=== PATIENT | female | born 1975 | race Caucasian/White ===

== ENCOUNTER 2017-04-13 13:43 | Emergency (ER) | payer BC ==
[2017-04-13] MEDS: CYCLOBENZAPRINE 10 MG TABLET. PO (14:15)
[2017-04-13] MEDS: KETOROLAC 60 MG/2 ML INJ. IM (14:16)
== END 2017-04-13 14:30 | disposition home or self-care (01) ==
LOC: ER 13:43
DX: R07.82 Intercostal pain (principal); J44.9 Chronic obstructive pulmonary disease, unspecified; [UNRECOGNIZED DIAGNOSIS CODE]
CPT/HCPCS: 96372; 99283; J1885

== ENCOUNTER 2018-09-06 19:38 | Emergency (ER) | payer BC ==
[~2018-09-06] VITALS: Ht 162.6 cm; Wt 59.0 kg
[~2018-09-06 19:38] MED LIST: CYCL10TA2 PO; HYDR-3164 PO; IBUP-1007 PO; NAPR-682 PO; NAPR250T6 PO
[2018-09-06 19:45] VITALS: BP 125/69
[2018-09-06] MEDS ORDERED: LIDOCAINE 1% Multi-Dose 20 ML VIAL. INJ ONE (20:30)
[2018-09-06] MEDS ORDERED: LIDOCAINE 1%/EPI 1:100,000 20 ML VIAL. ONE (20:39)
[2018-09-06] MEDS ORDERED: DIPHTH,PERTUSS(ACELL),TET TOX 0.5 ML DISP.SYRIN. VAX IM ONE ×2 (21:34→22:00)
[2018-09-06] MEDS ORDERED: CEPH-264 PO (21:35)
[2018-09-06] MEDS ORDERED: CEPHALEXIN 250 MG CAPSULE. PO STA (21:35)
--- NOTE | 2018-09-06 21:35 | PHYS DOC ---
Past Medical History Past Medical History: COPD (NADJA KELLEY APRN) Past Surgical History: Tubal ligation (NADJA KELLEY APRN) Alcohol Use: Occasionally Drug Use: None (NADJA KELLEY APRN) Adult General Chief Complaint Chief Complaint: ABSCESS HPI HPI Patient is a 43 year old female who presents with abscess in left groin. Has been ongoing for week. The patient states it started as an ingrown hair and became infected and has been getting bigger and the pain has been getting worse. Rates her pain as 5 out of 10 when lying flat but when she tries to walk her pain shoots up to 8 out of 10. She popped it yesterday and yellow pus came out. It then has become painful again. Has been using warm compresses on it. (NADJA KELLEY APRN) Review of Systems Review of Systems Constitutional: Denies fever or chills [] Eyes: Denies change in visual acuity, redness, or eye pain [] HENT: Denies nasal congestion or sore throat [] Respiratory: Denies cough or shortness of breath [] Cardiovascular: No additional information not addressed in HPI [] GI: Denies abdominal pain, nausea, vomiting, bloody stools or diarrhea [] : Denies dysuria or hematuria [] Musculoskeletal: Denies back pain or joint pain [] Integument: Denies rash or skin lesions with exception of abscess to left inguinal. Neurologic: Denies headache, focal weakness or sensory changes [] Endocrine: Denies polyuria or polydipsia [] Complete systems were reviewed and found to be within normal limits, except as documented in this note. (NADJA KELLEY APRN) Current Medications Current Medications Current Medications Medications (Trade) Dose Ordered Sig/Abdulaziz Start Time Stop Time Status Last Admin Dose Admin Cephalexin HCl (Keflex) 500 mg 1X STAT 09/06/18 21:35 09/06/18 21:38 DC 09/06/18 21:42 500 MG Diphtheria/ Tetanus/Acell Pertussis (Boostrix) 0.5 ml ONCE ONCE 09/06/18 22:00 09/06/18 22:00 DC 09/06/18 21:51 0.5 ML Lidocaine HCl (Lidocaine 1% 20ml Vial) 20 ml 1X ONCE 09/06/18 20:30 09/06/18 20:50 DC 09/06/18 20:54 20 ML Lidocaine/ Epinephrine (LIDOCAINE 1%-EPI 1:100,000 Multi-Dose) 20 ml STK-MED ONCE 09/06/18 20:39 09/06/18 20:40 DC (NADJA STOCKTON DO) Allergies Allergies Allergies Coded Allergies Type Severity Reaction Last Updated Verified No Known Drug Allergies 07/02/13 No (NADJA STOCKTON DO) Physical Exam Physical Exam Constitutional: Well developed, well nourished, no acute distress, non-toxic appearance. [] HENT: Normocephalic, atraumatic, bilateral external ears normal, oropharynx moist, no oral exudates, nose normal. [] Eyes: PERRLA, EOMI, conjunctiva normal, no discharge. [] Neck: Normal range of motion, no tenderness, supple, no stridor. [] Cardiovascular:Heart rate regular rhythm, no murmur [] Lungs & Thorax: Bilateral breath sounds clear to auscultation [] Abdomen: Bowel sounds normal, soft, no tenderness, no masses, no pulsatile masses. [] Skin: Warm, dry, no erythema, no rash. Has 2 cm abscess to the left inguinal area. Back: No tenderness, no CVA tenderness. [] Extremities: No tenderness, no cyanosis, no clubbing, ROM intact, no edema. [] Neurologic: Alert and oriented X 3, normal motor function, normal sensory function, no focal deficits noted. [] Psychologic: Affect normal, judgement normal, mood normal. [] (NADJA KELLEY APRN) Current Patient Data Vital Signs Vital Signs Date Time Temp Pulse Resp B/P (MAP) Pulse Ox O2 Delivery O2 Flow Rate FiO2 09/06/18 19:45 98.1 75 17 125/69 (87) 100 Room Air 98.1 (NADJA STOCKTON DO) Lab Values Laboratory Tests Test 09/06/18 20:12 POC Urine HCG, Qualitative Hcg negative (Negative) (NADJA STOCKTON DO) EKG EKG [] (NADJA KELLEY APRN) Radiology/Procedures Radiology/Procedures Indication: abscess Procedure: The patient was positioned appropriately. Local anesthesia was 1% lidocaine. An incision was then made over the apex of the lesion and exudate and blood was expressed. The drainage cavity was irrigated and packed with sterile gauze. The patients tetanus status updated as needed. The patient tolerated the procedure well. Complications: none. (NADJA KELLEY APRN) Course & Med Decision Making Course & Med Decision Making Pertinent Labs and Imaging studies reviewed. (See chart for details) I/d performed and abscess drained. Tetanus shot updated. (NADJA KELLEY APRN) Dragon Disclaimer Dragon Disclaimer This electronic medical record was generated, in whole or in part, using a voice recognition dictation system. (NADJA KELLEY APRN) Departure Departure Impression: Primary Impression: Abscess Disposition: HOME, SELF-CARE Condition: STABLE Referrals: YUVAL SCOTT (PCP) Patient Instructions: Abscess, Abscess, Care After, Abscess, Perineal Additional Instructions: Thank you for visiting [facility]. We appreciate you trusting us with your care. If any additional problems come up don't hesitate to return to visit us. Please follow up with your primary care provider so they can plan additional care if needed and know about the problem that you had. If symptoms worsen come back to the Emergency Department. Any concerning symptoms that start such as chest pain, shortness of Air, weakness or numbness on one side of the body, running high fevers or any other concerning symptoms return to the ER. Please fill your medications at any pharmacy and follow the prescription instructions. You have been prescribed an antibiotic today to help fight your infection. Please take all of the antibiotic as directed. If after 48 hours the infection is not improving, please return for more care. If the infection worsens, return to ER for additional care. Scripts Cephalexin (KEFLEX) 500 Mg Capsule 1 CAP PO BID for 7 Days, #14 CAP Prov: NADJA KELLEY APRN 09/06/18 Attending Signature Attending Signature I have reviewed the PA/OPERATIONS ADMINISTRATOR's note and plan of care. I was available for consultation as needed during the patient's visit in the emergency department. I agree with the clinical impression, plan, and disposition. (NADJA STOCKTON DO) NADJA KELLEY APRN Sep 06, 2018 21:35 NADJA STOCKTON DO Sep 07, 2018 03:48
== END 2018-09-06 21:52 | disposition home or self-care (01) ==
LOC: ER 19:38
DX: L02.214 Cutaneous abscess of groin (principal); L73.1 Pseudofolliculitis barbae; J44.9 Chronic obstructive pulmonary disease, unspecified; Z98.51 Tubal ligation status
CPT/HCPCS: 10060; 81025; 90471; 90715; 99283

== ENCOUNTER → 2019-11-29 | Outpatient (CLI) | payer BC ==
[~2019-11-29] MED LIST changes: +CEPH-264 PO
[2019-11-29 13:07] LABS: BASO # 0.1 x10^3/uL (0.0-0.2); BASO % 1 % (0-3); EOS # 0.3 x10^3/uL (0.0-0.7); EOS % 4 % (0-3); HEMATOCRIT 42.5 % (36.0-47.0); HEMOGLOBIN 14.4 g/dL (12.0-15.5); LYMPH % 35 % (24-48); MEAN CORPUSCULAR HEMOGLOBIN 31 pg (25-35); MEAN CORPUSCULAR HGB CONC 34 g/dL (31-37); MEAN CORPUSCULAR VOLUME 91 fL (79-100); MONO # 0.5 x10^3/uL (0.0-1.1); MONO % 6 % (0-9); NEUT # 4.6 x10^3/uL (1.8-7.7); NEUT % 54 % (31-73); PLATELET COUNT 378 x10^3/uL (140-400); RED BLOOD COUNT 4.69 x10^6/uL (3.50-5.40); RED CELL DISTRIBUTION WIDTH 12.5 % (11.5-14.5); WHITE BLOOD COUNT 8.5 x10^3/uL (4.0-11.0)
[2019-11-29 13:08] LABS: BILIRUBIN,URINE NEGATIVE (NEG); CLARITY,URINE CLEAR; COLOR,URINE YELLOW; NITRITE,URINE NEGATIVE (NEG); PH,URINE 5.5 (<5.0-8.0); PROTEIN,URINE NEGATIVE (NEG-TRACE); UROBILINOGEN,URINE 0.2 mg/dL (0.2 mg/dL)
[2019-11-29 13:12] LABS: SQUAMOUS EPITHELIAL CELL,UR MOD /LPF
[2019-11-29 13:13] LABS: BACTERIA,URINE 0 /HPF (0-FEW)
--- NOTE | 2019-11-29 13:32 | EKG ---
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
[2019-11-29 13:45] LABS: ALBUMIN 4.2 g/dL (3.4-5.0); CALCIUM 8.6 mg/dL (8.5-10.1); CREATININE 0.8 mg/dL (0.6-1.0); GFR 78.3; POTASSIUM 4.2 mmol/L (3.5-5.1); TOTAL BILIRUBIN 0.5 mg/dL (0.2-1.0); TOTAL PROTEIN 8.3 g/dL (6.4-8.2)
--- NOTE | 2019-11-29 16:27 | RAD ---
CHEST PA LATERAL INDICATION: Reason: PRE OP HYSTERECTOMY ON 12/04/19 / Spl. Instructions: / History: . COMPARISON STUDY: Radiograph 02/21/2016, CT 01/28/2016. FINDINGS: Lungs: Normal lung volume. No pulmonary mass or consolidation. Stable right mid lung nodule. The tracheobronchial tree and hilar structures are normal. Pleura: No pleural effusion or pneumothorax. Heart and Mediastinum: The cardiomediastinal silhouette is normal. The great vessels of the thorax are normal. IMPRESSION: No acute cardiopulmonary process. Electronically signed by: Everett Billings MD (11/29/2019 4:24 PM) [id number]
--- NOTE | 2019-12-03 12:05 | NUR ---
Faxed pretesting results to Dr Dorman.
== END | disposition home or self-care (01) ==
LOC: SURGPAT 12:27
PROVIDERS: ATTEND Obstetrics & Gynecology
DX: Z01.812 Encounter for preprocedural laboratory examination (principal); Z20.828 Contact with and (suspected) exposure to other viral communicable diseases; I10 Essential (primary) hypertension; F17.200 Nicotine dependence, unspecified, uncomplicated
CPT/HCPCS: 71046; 80053; 81001; 85025; 93005; U0003

== ENCOUNTER 2019-12-04 06:21 | Observation (INO) | payer BC ==
[2019-12-04] VITALS (7 sets, daily range): BP systolic 98–115; BP diastolic 52–75
[~2019-12-04] VITALS: Ht 162.6 cm; Wt 58.0 kg
[~2019-12-04 06:21] MED LIST changes: +ceFAZolin SODIUM IV Push 1 GM VIAL. IVP PRN
[2019-12-04] MEDS ORDERED: fentaNYL PF VIAL 100 MCG/2 ML VIAL IV PRN ×2 (07:00)
[2019-12-04] MEDS ORDERED: LIDOCAINE 1% PF 2 ML VIAL. ID PRN (07:00)
[2019-12-04] MEDS ORDERED: ONDANSETRON PF 4 MG/2 ML VIAL. IV PRN ×2 (07:00→10:30)
[2019-12-04] MEDS ORDERED: IV RINGERS,LACTATED 1000ML 1,000 ML IV SCH (07:00)
[2019-12-04] MEDS ORDERED: HYDROmorphone 2 MG/ML VIAL IV PRN (07:00)
[2019-12-04] MEDS ORDERED: PROCHLORPERAZINE 10 MG/2 ML VIAL. IV PRN (07:00)
[2019-12-04] MEDS ORDERED: MORPHINE SULFATE 2 MG/ML VIAL. IV PRN ×2 (07:00→10:30)
[2019-12-04] MEDS ORDERED: INDIGOTINDISULFONATE SODIUM 40 MG/5 ML AMPUL. ONE (07:14)
[2019-12-04] MEDS ORDERED: BUPIVACAINE MPF 0.25% 30 ML VIAL. ONE (07:14)
[2019-12-04] MEDS ORDERED: ESTROGENS, CONJ VAGINAL CREAM 30GM TUBE. ONE (07:14)
[2019-12-04] MEDS ORDERED: BUPIVACAINE-EPI 0.5%-1:200000 MPF 30 ML VIAL. ONE (07:14)
[2019-12-04] MEDS ORDERED: fentaNYL PF VIAL 250 MCG/5 ML VIAL ONE (07:24)
[2019-12-04] MEDS ORDERED: MIDAZOLAM HCL/PF 2 MG/2 ML VIAL. ONE (07:24)
[2019-12-04] MEDS ORDERED: ROCURONIUM 50 MG/5 ML VIAL. ONE (07:24)
[2019-12-04] MEDS ORDERED: GLYCOPYRROLATE 1 MG/5 ML VIAL. ONE (09:55)
[2019-12-04] MEDS ORDERED: NEOSTIGMINE METHYLSULFATE 5 MG/5 ML SYRINGE. ONE (09:55)
[2019-12-04] MEDS ORDERED: PROCHLORPERAZINE 10 MG/2 ML VIAL. ONE (10:19)
[2019-12-04] MEDS ORDERED: fentaNYL PF VIAL 100 MCG/2 ML VIAL ONE (10:19)
--- NOTE | 2019-12-04 10:21 | PDOC ---
BRIEF OPERATIVE NOTE Date: Dec 04, 2019 Pre-Op Diagnosis dysmenorrhea, irregular menses Post-Op Diagnosis same Procedure Performed LAVH/RSO/left salpingectomy Surgeon Dr. Andreia Templeton Document Clerk Briseida OR nurse Anesthesiologist Dr. Ortez Anesthesia Type: General Blood Loss 100cc IV Fluid 2L Urine Output 125cc clear and concentrated Specimens Obtained cervix, uterus, right tube and ovary, left tube Findings mildly enlarged uterus, right paratubal cyst, no gross abnormalities Complications none Operative Note [id number] ANDREIA TEMPLETON MD Dec 04, 2019 10:21
[2019-12-04] MEDS ORDERED: LIDOCAINE 2% PF 5 ML VIAL. ONE (10:24)
[2019-12-04] MEDS ORDERED: PROPOFOL 10 MG/ML (20ML) VIAL. IV ONE (10:24)
[2019-12-04] MEDS ORDERED: SEVOFLURANE > 120 MINUTES. IH ONE (10:24)
[2019-12-04] MEDS ORDERED: diphenhydrAMINE 50 MG/ML VIAL IV PRN (10:30)
[2019-12-04] MEDS ORDERED: oxyCODONE/APAP 5/325 1 TAB TABLET PO PRN (10:30)
[2019-12-04] MEDS ORDERED: 0.9 % SODIUM CHLORIDE 10 ML DISP.SYRIN. IV PRN (10:30)
[2019-12-04] MEDS ORDERED: MAG HYDROX/ALUMINUM HYD/SIMETH 30 ML ORAL.SUSP PO PRN (10:30)
[2019-12-04] MEDS ORDERED: ZOLPIDEM 5 MG TABLET. PO PRN (10:30)
[2019-12-04] MEDS ORDERED: MAGNESIUM HYDROXIDE 2,400 MG/30 ML ORAL.SUSP. PO PRN (10:30)
[2019-12-04] MEDS ORDERED: CALCIUM CARBONATE 500 MG TAB.CHEW PO PRN (10:30)
[2019-12-04] MEDS ORDERED: LACTULOSE 20 GM/30 ML SOLUTION. PO PRN (10:30)
[2019-12-04] MEDS ORDERED: diphenhydrAMINE HCL 25 MG CAPSULE PO PRN (10:30)
[2019-12-04] MEDS ORDERED: SIMETHICONE 80 MG TAB.CHEW PO PRN (10:30)
[2019-12-04] MEDS ORDERED: NALOXONE 0.4 MG/ML VIAL. IV PRN (10:30)
--- NOTE | 2019-12-04 13:47 | OP ---
DATE OF SURGERY: 12/04/2019 PREOPERATIVE DIAGNOSES: Dysmenorrhea, irregular menses and chronic right-sided pelvic pain. POSTOPERATIVE DIAGNOSES: Dysmenorrhea, irregular menses and chronic right-sided pelvic pain. PROCEDURE: Laparoscopic-assisted vaginal hysterectomy, right salpingo-oophorectomy, left salpingectomy. SURGEON: Rafi Templeton MD FLAKING ROLL OPERATOR: WHITNEY Prado nurses. ANESTHESIOLOGIST: Artem Ortez MD ANESTHESIA: General. ESTIMATED BLOOD LOSS: 100 mL. URINE OUTPUT: 125 mL clear and concentrated via Plaza. IV FLUIDS: 2 liters of crystalloid. SPECIMEN REMOVED: Cervix, uterus, right tube and ovary and left tube. FINDINGS: Just a mildly enlarged uterus. The right paratubal cyst. No other gross abnormalities with the bowel. I could see the tip of the normal appendix, normal right upper quadrant. No gross abnormalities. COMPLICATIONS: None. DESCRIPTION OF PROCEDURE: This patient was taken to the operating room where general anesthesia was placed. The patient was placed in dorsal lithotomy [facility] The patient's abdomen and vagina were both prepped and draped in the normal sterile fashion and a Plaza catheter had been inserted under sterile technique. Upon my arrival, a timeout was performed. Once everyone agreed on the patient, the site, the procedure and she had received her antibiotics, the procedure was initiated. A bivalve speculum was placed in the patient's vagina. A single-tooth tenaculum was used to grasp the anterior lip of the cervix. A 10-12 mL of local was placed around the cervix for both hemodissection and hemostatic purposes later. The Valtchev uterine manipulator was placed through the endocervical os, locked on the single tooth tenaculum and the bivalve speculum was then removed. Top gloves were discarded and changed. Attention was then turned to the abdomen where a small infraumbilical skin incision was made over an existing scar. A curved Krystal was used to dissect through the subcuticular layer to the fascia. The 5 mm Visiport was used to directly into the abdominal cavity. Opening patient pressure was 2-3 mmHg. Carbon dioxide gas was used to insufflate the abdominal cavity to maintain a pressure of 15 mmHg. The patient was placed in Trendelenburg position. Left and right lower quadrant ports were placed, transilluminating the abdominal wall, finding an area clear of any vasculature and there was no adhesive disease on the inside, so once this was found a small incision was made and the 5 mm atraumatic ports were placed through under direct visualization, 4-5 mL of air was placed in each of these cuffs. Once they were placed, the scope was moved to the lateral port and looked at the umbilical port. Once it was clear and in a good spot, 4-5 mL of air was placed in this port as well. The gas was moved to the lateral port not to ____ and unfortunately they are still out of smoke ____. So, we decided to stop periodically throughout the case and allowed gas out to clear the smoke when we were using the LigaSure. At this point, the procedure was initiated. The left ovary looked good. She wished to retain this. She has absolutely no pain on the left side and is young for hormones, so I went above the ovary, below the tube and did a salpingectomy, cauterizing and cutting, then cross the left uteroovarian pedicle and the left round ligament, cauterizing and cutting the whole way through. The right side is where all of her pain was there was a right paratubal cyst, elevating the right tube and ovary, finding the ureter coursing low in the pelvis below where we were, it was clearly seen peristalsing and easily visualized staying hugging right under the ovary, staying high crossing the infundibulopelvic ligament on the right side, taking the right tube and ovary per patient request, taking it. Then, again crossing the right round ligament as well. The bladder flap was created sharply from the right side. The uterus was pushed cephalad and cut. The [place] was used to elevate the bladder flap and the monopolar hook was used to cauterize across and pull it down gently making the bladder flap sharply and bluntly. Once this was done, the uterine vessels were obtained on the right side and taking a few small bites inside of that pedicle going down hugging the cervix through the cardinal and broad ligaments. The left side, I just crossed over contralateral, hugged the cervix the whole way down and I was able, once the bladder was down, to get all the way down to the uterosacrals. The uterus was completely free and blanched, so all instruments were removed from the abdomen and attention was turned vaginally. The single tooth and Valtchev were removed. A weighted speculum was placed in the patient's vagina. Thyroid Ashley clamps were placed on the anterior and posterior lips of the cervix respectively. A scalpel was used to make a circumferential incision in the cervix and the posterior cul-de-sac was sharply entered with curved Mai scissors. A #0 Vicryl stitch was used to secure the posterior peritoneum here to the vaginal cuff and it was tagged with a curved Krystal clamp and the needle was cut and passed off. The short weighted speculum was removed and the long weighted Marifer speculum was placed in the posterior cul-de-sac. At this point, the anterior bladder peritoneum was taken out sharply using the end of the Organic Societyuer suction tip to gently push up and peel it off the cervix and then an open Ray-Lisa 4 x 4 was used to gently push it up once it was in a good plane and got in the anterior cul-de-sac bluntly. The curved Ronit was placed in the anterior cul-de-sac and the 4 x 4 had been removed and passed back to the back table. At this point, curved Ruddy clamps x 2 were placed on the patient's left uterosacral ligament where they were doubly clamped with curved Heaneys, cut with curved Mai scissors and suture ligated x 2 with 0 Vicryl. Second one was taken through the vaginal cuff securing uterosacral ligament to the vaginal cuff, tagged with a straight Krystal clamp and the needle was cut and passed off. This was done exactly the same on the right side, double clamping the uterosacrals with curved Ruddy's, cutting with curved Mai scissors, suture ligating x 2 with 0 Vicryl, taking the second one through the vaginal cuff securing uterosacral ligament to the vaginal cuff, tying it, tagging it with a straight Krystal clamp and cutting and passing the needle off. At this point, the right angle Mixter clamp was used to delineate the pedicle on the left. The vaginal LigaSure was used to cauterize and cut, freeing up the entire left side. This was done exactly the same on the right side. Once it was free, the cervix, uterus, right tube and ovary and left tube were delivered in total and passed off for permanent pathology. At this point, the anterior bladder peritoneum was grasped with a long Allis. A sponge stick was used to examine the pedicles. The left side was completely hemostatic. The right side had a tiny bit of bleeding just on the uterosacral. A burlisher was placed here and a 0 Vicryl stitch was used to secure the bleeding with excellent results. Once this was done and the sponge stick was used, I did remove the long weighted Marifer speculum and replaced with the short weighted vaginal speculum. Again I examined all the pedicles again making sure everything was hemostatic. Once it was, 2-0 Vicryl was taken through the anterior bladder peritoneum, left uterosacral ligament, posterior peritoneum and right uterosacral ligament, thus closing the peritoneum in a pursestring like fashion. Once this was done, the right and left uterosacral tags were clipped. A full length 2-0 Vicryl was obtained and the cuff was closed in an anterior to posterior running locked fashion and tied to that posterior cuff tag. Imbricating stitch was just placed in the middle for security. Once this was done, the cuff was completely hemostatic. All instruments were removed and correct x 2 by OR personnel the counts. All gloves were discarded and changed and attention was turned back above for a second look. Copious irrigation revealed hemostasis. The right and left pericolic gutters were clear. The right upper quadrant looked good. The tip of the normal appendix could be seen. It was just clear irrigation and return. Tisseel was placed over all the cuffs and there was a very small clot on the left ovary where there had been a little oozing that had stopped, but irrigation revealed hemostasis. Tisseel was placed over everything and there was absolutely no bleeding. After looking around every where again and finding the appendix. It remained hemostatic. All 3 of the trocars were deflated from that 4-5 mL of air. The left and right lower quadrant ports were removed under direct visualization. These too were hemostatic. Gas was released from the umbilical port. All three port sites were closed with 4-0 nylon at the skin and injected with local. The patient was then awakened from anesthesia and is being brought to recovery room in stable condition. RAFI TEMPLETON MD DR: PAULINE/severino JOB#: [id number] / [id number]
[2019-12-04] MEDS: HYDROcodone/APAP 5/325MG 1 TAB TABLET PO PRN ×2 (14:09→21:02)
[2019-12-05 01:15] VITALS: BP 113/69
[2019-12-05] MEDS: HYDROcodone/APAP 5/325MG 1 TAB TABLET PO PRN ×2 (02:03→09:54)
[2019-12-05 06:01] VITALS: BP 114/71
[2019-12-05 07:29] LABS: CALCIUM 8.9 mg/dL (8.5-10.1); CREATININE 0.6 mg/dL (0.6-1.0); GFR 109.1; POTASSIUM 4.3 mmol/L (3.5-5.1)
[2019-12-05 08:30] VITALS: BP 112/71
--- NOTE | 2019-12-05 08:46 | PDOC ---
SURGICAL PROGRESS NOTE DATE: 12/05/19 TIME: 08:42 Subjective Doing well. Up eating breakfast without n/v. Voiding without catheter. Main complaint was some trouble sleeping. Minimal pain, scant VB and ambulating well. Wants to go home Vital Signs Vital Signs Date Time Temp Pulse Resp B/P (MAP) Pulse Ox O2 Delivery O2 Flow Rate FiO2 12/05/19 06:01 98.8 67 114/71 (85) 98 98.8 12/05/19 02:03 18 Room Air 12/04/19 10:25 10.0 I&O Intake and Output 12/05/19 07:00 Intake Total 2000 ml Output Total 725 ml Balance 1275 ml Intake IV Total 2000 ml Output Urine Total 625 ml Estimated Blood Loss 100 ml # Voids 3 PATIENT HAS A VALENTINO: No General: Alert, Oriented X3, Cooperative, No acute distress HEENT: Atraumatic Heart: Regular rate Abdomen: Soft, No tenderness, Other (all port sites c/d/i) Extremities: No clubbing, No cyanosis, No edema, No tenderness/swelling Skin: No rashes, No breakdown Neuro: Normal speech Psych/Mental Status: Mental status NL, Mood NL Labs Laboratory Tests Test 12/04/19 07:11 12/05/19 06:40 Bedside Urine HCG, Qualitative Hcg negative (Negative) Hematocrit 32.1 % (36.0-47.0) Sodium Level 140 mmol/L (136-145) Potassium Level 4.3 mmol/L (3.5-5.1) Chloride Level 105 mmol/L (98-107) Carbon Dioxide Level 27 mmol/L (21-32) Anion Gap 8 (6-14) Blood Urea Nitrogen 6 mg/dL (7-20) Creatinine 0.6 mg/dL (0.6-1.0) Estimated GFR (Cockcroft-Gault) 109.1 Glucose Level 93 mg/dL (70-99) Calcium Level 8.9 mg/dL (8.5-10.1) Laboratory Tests Test 12/05/19 06:40 Hematocrit 32.1 % (36.0-47.0) Sodium Level 140 mmol/L (136-145) Potassium Level 4.3 mmol/L (3.5-5.1) Chloride Level 105 mmol/L (98-107) Carbon Dioxide Level 27 mmol/L (21-32) Anion Gap 8 (6-14) Blood Urea Nitrogen 6 mg/dL (7-20) Creatinine 0.6 mg/dL (0.6-1.0) Estimated GFR (Cockcroft-Gault) 109.1 Glucose Level 93 mg/dL (70-99) Calcium Level 8.9 mg/dL (8.5-10.1) I have reviewed the following labs, vitals, nursing Assessment/Plan POD#1 s/p LAVH/RSO/left salpingectomy Routine PO care d/c to home later today keep scheduled follow up in office with me as scheduled [place]--pt already has ok to alternate Ibuprofen otc as needed also NO driving on narcotics NPV x 6 weeks light/limited activity x 2 weeks call or return sooner for any other questions or concerns not limited to but in cluding pain unrelieved with pain meds, increased or unexplained vaginal bleeding or T>100.4 Justicifation of Admission Dx: Justifications for Admission: Justification of Admission Dx: Yes Comments: immediate postop pt RAFI TEMPLETON MD Dec 05, 2019 08:46
--- NOTE | 2019-12-05 08:49 | PDOC3 ---
Discharge Summary Visit Information Date of Admission: Dec 04, 2019 Date of Discharge: Dec 05, 2019 Final Diagnosis dysmenorrhea, irreg menses, pelvic pain Brief Hospital Course Allergies Allergies Coded Allergies Type Severity Reaction Last Updated Verified No Known Drug Allergies 12/04/19 No Vital Signs Vital Signs Date Time Temp Pulse Resp B/P (MAP) Pulse Ox O2 Delivery O2 Flow Rate FiO2 12/05/19 06:01 98.8 67 114/71 (85) 98 98.8 12/05/19 02:03 18 Room Air 12/04/19 10:25 10.0 Lab Results Laboratory Tests Test 12/04/19 07:11 12/05/19 06:40 Bedside Urine HCG, Qualitative Hcg negative (Negative) Hematocrit 32.1 % (36.0-47.0) Sodium Level 140 mmol/L (136-145) Potassium Level 4.3 mmol/L (3.5-5.1) Chloride Level 105 mmol/L (98-107) Carbon Dioxide Level 27 mmol/L (21-32) Anion Gap 8 (6-14) Blood Urea Nitrogen 6 mg/dL (7-20) Creatinine 0.6 mg/dL (0.6-1.0) Estimated GFR (Cockcroft-Gault) 109.1 Glucose Level 93 mg/dL (70-99) Calcium Level 8.9 mg/dL (8.5-10.1) Laboratory Tests Test 12/05/19 06:40 Hematocrit 32.1 % (36.0-47.0) Sodium Level 140 mmol/L (136-145) Potassium Level 4.3 mmol/L (3.5-5.1) Chloride Level 105 mmol/L (98-107) Carbon Dioxide Level 27 mmol/L (21-32) Anion Gap 8 (6-14) Blood Urea Nitrogen 6 mg/dL (7-20) Creatinine 0.6 mg/dL (0.6-1.0) Estimated GFR (Cockcroft-Gault) 109.1 Glucose Level 93 mg/dL (70-99) Calcium Level 8.9 mg/dL (8.5-10.1) Brief Hospital Course Ms. Whitfield is a 44 old female who presented with continued dysmenorrhea, irreg menses and pelvic pain desiring definitive therapy. She underwent LAVH/RSO/left salpingectomy without complications. She has had an unremarkable postoperative course. She is tolerating regular diet without n/v, [id number] well, voiding without catheter and desiring to go home. Assessment Assessment POD#1 s/p LAVH/RSO/left salpingectomy Routine PO care d/c to home later today keep scheduled follow up in office with me as scheduled [place]--pt already has ok to alternate Ibuprofen otc as needed also NO driving on narcotics NPV x 6 weeks light/limited activity x 2 weeks call or return sooner for any other questions or concerns not limited to but including pain unrelieved with pain meds, increased or unexplained vaginal bleeding or T>100.4 Discharge Information Condition at Discharge: Stable Follow Up: Weeks Disposition/Orders: D/C to Home Scheduled Info (No Known Medications Prior To Admisstion) Each, 1 EACH MC DAILY for NONE, (Reported) Entered as Reported by: CHRISTIANO NORRIS on 11/29/19 1303 Last Action: Reviewed on 12/04/19 0657 by RENAN BOSS Patient Instructions Patient Instructions POD#1 s/p LAVH/RSO/left salpingectomy Routine PO care d/c to home later today keep scheduled follow up in office with me as scheduled [place]--pt already has ok to alternate Ibuprofen otc as needed also NO driving on narcotics NPV x 6 weeks light/limited activity x 2 weeks call or return sooner for any other questions or concerns not limited to but including pain unrelieved with pain meds, increased or unexplained vaginal bleeding or T>100.4 Justicifation of Admission Dx: Justifications for Admission: Justification of Admission Dx: Yes RAFI TEMPLETON MD Dec 05, 2019 08:48
--- NOTE | 2019-12-09 11:07 | PATHOLOGY ---
[facility] Accession Number: [id number] . 01 Material submitted: . uterus - UTERUS, CERVIX, RIGHT TUBE AND OVARY, LEFT TUBE. Modifiers: bilateral, right . 01 Clinical history: . FIBROIDS, IRREGULAR PERIODS . 02 Diagnosis: Uterus (total hysterectomy): - Chronic cervicitis. - Squamous metaplasia of uterine cervix; negative for dysplasia and malignancy. - Nabothian cyst formation. - Denuded /atrophic endometrium; negative for hyperplasia, atypia, and malignancy. . Ovary "right", oophorectomy: - Benign cystic follicle. . Fallopian tube "right and left", salpingectomy: - Endometriosis involving right tubo-ovarian ligament. - Endosalpingiosis and paratubal cyst involving right fallopian tube. - Endosalpingiosis and paratubal cyst involving left fallopian tube. (MLK/db; 12/06/2019) LB 12/09/2019 1054 Local . 02 Electronically signed: . Lucretia Pack MD, Pathologist NPI- [id number] . 01 Gross description: . The specimen is received in formalin, labeled "[place], uterus cervix left tube right tube and ovary" and consists of a 96 g uterus with attached cervix measuring 7.8 x 5.8 x 4.1 cm. Attached is the 11 g right tubo-ovarian complex consisting of a fimbriated fallopian tube (5.4 cm in length and up to 0.6 cm) in diameter attached to a cerebriform 3.7 x 1.8 x 1.4 cm ovary. Also attached is the left fimbriated fallopian tube measuring 4.5 cm in length and up to 0.5 cm in diameter. Both fallopian tube segments are status post tubal ligation. Uterine serosa is pink-stewart smooth shiny. The glistening pink-stewart ectocervical mucosa has a central 1.4 cm slitlike os. The endocervical canal is smooth measuring 2.1 cm in length. The endometrial cavity is roughly triangular measuring 3.8 cm in length and 3.2 cm in width lined by an attenuated scarred less than 0.1 endometrium. The myometrium is stewart-pink measuring up to 2.3 cm with no nodules. . The right fallopian tube has a 1.6 cm clear fluid filled paratubal cyst with both tubes showing a well-defined central lumen. The right ovary is a fluid filled 1.0 cm cyst. [employer] sections are submitted as follows: . A1: Anterior cervix A2: Posterior cervix A3: Anterior endomyometrium A4: Posterior endomyometrium A5: Right fallopian tube A6: Right ovary A7: Left fallopian tube (SDY; 12/05/2019) SYU/SYU 12/05/2019 1323 Local . 02 Pathologist provided ICD-10: N72, N87.9, N88.8, N83.01, N80.2, N94.89, N83.8 . 02 CPT . 135690 Specimen Comment: A courtesy copy of this report has been sent to [phone], [phone] Specimen Comment: [id number] Specimen Comment: Report sent to / DR SCOTT Performed at: 01 [facility] [address] [id number] MD Bebo Leonard MD Phone: [phone] Performed at: [address] [id number] MD Too Hernandez MD Phone: [phone]
== END 2019-12-05 10:56 | disposition home or self-care (01) ==
LOC: SURG 06:21 → 3 NORTH 10:32
PROVIDERS: ADMIT Obstetrics & Gynecology; ATTEND Obstetrics & Gynecology
DX: N94.6 Dysmenorrhea, unspecified (principal); N92.6 Irregular menstruation, unspecified; N85.2 Hypertrophy of uterus
CPT/HCPCS: 36415; 58552; 80048; 81025; 85014; 86850; 86900; 86901; G0378; G0379; J0690; J0780; J2250; J2704; J2710; J3010; J3490; J7030; J7120; 88307